=== PATIENT | male | born 1945 | race Caucasian/White ===

== ENCOUNTER → 2016-05-14 | Outpatient (CLI) | payer MEDICARE ==
[2016-05-14 12:11] LABS: BUN 24 mg/dL (7-18)
[2016-05-14 12:13] LABS: GFR (ESTIMATED) 83 ML/MIN (>60)
--- NOTE | 2016-05-14 14:06 | RADIOLOGY REPORT PS360 ---
PROCEDURE: 2-D M-mode and color Doppler study INDICATIONS FOR THE TEST: Chest pain COPD Heart Murmur Tobacco Smoking Palpitations Fatigue Syncope Edema HypertensionXDiabetes Mellitus Rheumatic Fever SOBXDOEXObesityXHyperlipidemiaX Family History HD Additional History CAD,STENTS PATIENT INFORMATION HEIGHT: 64 WEIGHT:244 GENDER: Male B/P:120/70 2-D/M-MODE INTERPRETATION: 2-D MEASUREMENTS OBSERVED VALUES IN CMS Right Ventricular Dimension (RVDd) 2.6 Interventricular Septum (Thickness)(IVsd) 1.2 Left Ventricular Internal Dimensions(LVIDd) 5.1 Left Ventricular Posterior Wall (Thickness)(LVPWd) 1.2 Aortic Root 3.6 Aortic Cusp Separation 1.8 Left Atrial Dimensions (LAD) 3.1 2D 1. Technically difficult study because of the patient's factor and poor acoustic windows. 2. Left atrium is normal size, left ventricle is normal size, there is mild concentric left ventricular hypertrophy present, visually estimated ejection fraction 55% with no obvious regional wall motion abnormality. 3. The right atrium is normal size, right ventricle is mildly dilated with normal contractility. 4. The aortic valve is minimally thickened and fibrosed consistent with mild aortic sclerosis. 5. The mitral leaflets are minimally thickened, there is no mitral stenosis. 6. The tricuspid valve is structurally normal. 7. Pulmonic valve is not well visualized. 8. No significant pericardial effusion noted. DOPPLER INTERROGATION: Doppler interrogation of the aortic mitral and tricuspid valvular presence of mild mitral and tricuspid regurgitation, tricuspid regurgitant jet velocity insufficient for calculation of the right ventricular systolic pressure, grade 1 diastolic dysfunction seen without tissue Doppler evidence of raised left atrial pressure. CONCLUSION: 1. Technically difficult study because of the patient's factor and poor acoustic Windows. 2. Normal left ventricular size, mild concentric left ventricular hypertrophy, visually estimated to fraction 55% with no obvious regional wall motion abnormality, grade 1 diastolic dysfunction seen without Doppler evidence of raised left atrial pressure. 3. Mildly enlarged right ventricle with normal contractility. 4. Mild mitral and tricuspid regurgitation. 5. No significant pericardial effusion noted.
--- NOTE | 2016-05-14 15:24 | RADIOLOGY REPORT PS360 ---
CT CHEST W/ CONTRAST INDICATION: SOB,PULMONARY NODULES,CAD,HHD,HLD ORDERING PHYSICIAN: Jesus Silveira MD PATIENT AGE: 70 years COMPARISON: None TECHNIQUE: Axial images are obtained with contrast. Sagittal and coronal reformatted images are reviewed as well. FINDINGS: No evidence of aortic aneurysm, dissection, or central pulmonary embolus. Coronary artery calcifications and stents are noted. Normal heart size. No pericardial thickening evident. No mediastinal mass or adenopathy. There are few scattered small mediastinal lymph nodes which measure less than 1 cm in short axis. There are a few scattered areas of fibrotic change noted along with mild bronchial thickening. There is 4 mm groundglass opacity in the right lower lobe posterior laterally. A partially calcified 4 mm nodule present in the right lung base. In addition, there is a 5 mm nodule in the posterior aspect of the right upper lobe not readily calcified. Calcified granulomas present superior segment left lower lobe. There is hyperinflation with attenuation of the peripheral pulmonary vessels and bronchial thickening consistent with obstructive chronic bronchitis Calcified granulomas present in the left upper lobe medially. No effusions or infiltrates. There are multiple isodense hepatic lesions measuring up to 15 mm in the posterior segment right hepatic lobe likely related to hepatic cyst. As been a prior cholecystectomy. The adrenal glands are unremarkable. There are degenerative changes in the thoracic spine. A 7 mm lucency involves the T8 vertebral body on the right. This appears fairly well-circumscribed. There is ankylosis of the thoracic spine. There is fracture of the ossified anterior longitudinal ligament at T9-T10 level with severe degenerative disc disease at T9-T10. IMPRESSION: 1. Scattered probably benign noncalcified pulmonary nodules the largest in the posterior segment right upper lobe. Recommend 6 month follow-up 2. Obstructive chronic bronchitis. 3. Probable hepatic cyst. 4. 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
== END ==
LOC: RT 11:39
PROVIDERS: Internal Medicine
DX: R06.02 Shortness of breath (principal); R91.8 Other nonspecific abnormal finding of lung field; I25.10 Atherosclerotic heart disease of native coronary artery without angina pectoris; E78.5 Hyperlipidemia, unspecified; I11.9 Hypertensive heart disease without heart failure; G47.30 Sleep apnea, unspecified
CPT/HCPCS: Q9967